=== PATIENT | male | born 1975 | race Caucasian/White ===

== ENCOUNTER 2018-01-11 16:23 | Inpatient (IN) | payer OTHER ==
[~2018-01-11] VITALS: Ht 185.4 cm; Wt 75.0 kg
[2018-01-11 17:21] VITALS: BP 160/100
--- NOTE | 2018-01-11 17:22 | ED GENERAL ADULT ---
See Addendum History of Present Illness General Chief Complaint: Psychiatric Related Complaint Stated Complaint: SIB HIGHWATCH FOR DETOX FROM ALCOHOL Source: patient Exam Limitations: no limitations Vital Signs & Intake/Output Vital Signs & Intake/Output Vital Signs Date Time Temp Pulse Resp B/P B/P Pulse O2 O2 Flow FiO2 Mean Ox Delivery Rate 01/11 2203 98.7 84 16 150/98 98 Room Air 01/11 2202 98.7 84 16 150/98 01/11 1944 99.1 74 18 142/80 98 Room Air 01/11 1816 Room Air 01/11 1739 101 160/100 01/11 1721 160/100 01/11 1641 98.4 101 18 168/117 98 Room Air ED Intake and Output 01/12 0000 01/11 1200 Intake Total 200 Output Total Balance 200 Intake, Oral 200 Patient 170 lb Weight Weight Reported by Patient Measurement Method Allergies Coded Allergies: No Known Allergies (01/11/18) Reconcile Medications Amlodipine (Norvasc) 2.5 MG TABLET 1 TAB PO DAILY HTN (Reported) Atorvastatin Calcium 10 MG TABLET 1 TAB PO DAILY HIGH CHOLESTEROL (Reported) Triage Note: 42 YO MALE TO TRIAGE FOR HIGHWATCH CLEARENCE. 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 ALSO ADMITS TO COCAINE USE 2 NIGHTS AGO (DOESNT USE DAILY). DENIES SEIZURE HX WITH DETOX. Triage Nurses Notes Reviewed? yes Onset: Abrupt Duration: day(s):, constant, continues in ED, getting worse Timing: recent history Injury Environment: home Severity: mild, moderate No Modifying Factors: none HPI: 42-year-old male history of hypertension alcohol dependence, pancreatitis, anxiety presents for evaluation of alcohol withdrawal. Patient reports she has been drinking daily about 15 shots. He reports that he has not been sober in about 7 years. He reports that he drinks throughout the day every few hours including when he wakes up around 6 AM. He reports that he does develop withdrawal symptoms after several hours of not drinking. His last drink was several hours prior to arrival he had 4 nIPs. He denies any history of withdrawal seizures but has never detoxed a really long time. He does report using cocaine intermittently last used several days ago. No suicidal or homicidal ideation. No hallucinations. He does not currently take any medications. He was prescribed Norvasc for his blood pressure but stopped taking it due to insurance problems. No chest pain or shortness of breath. he does currently report high anxiety. (Lonny Pritchett) Past History Travel History Traveled to [place] past 21 day No Medical History Any Pertinent Medical History? 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 No (Lonny Pritchett) Review of Systems Review of Systems Constitutional: Reports: no symptoms. EENTM: Reports: no symptoms. Respiratory: Reports: no symptoms. Cardiovascular: Reports: no symptoms. GI: Reports: no symptoms. Genitourinary: Reports: no symptoms. Musculoskeletal: Reports: no symptoms. Skin: Reports: no symptoms. Neurological/Psychological: Reports: see HPI, anxiety. Hematologic/Endocrine: Reports: no symptoms. Immunologic/Allergic: Reports: no symptoms. All Other Systems: Reviewed and Negative (Lonny Pritchett) Physical Exam Physical Exam General Appearance: well developed/nourished, no apparent distress, alert, awake , anxious, intoxicated Head: atraumatic, normal appearance Eyes: Bilateral: normal appearance, PERRL, EOMI. Ears, Nose, Throat: normal pharynx, normal ENT inspection, hearing grossly normal Neck: normal inspection, supple, full range of motion Respiratory: normal breath sounds, chest non-tender, no respiratory distress, lungs clear Cardiovascular: regular rate/rhythm, normal peripheral pulses Peripheral Pulses: 2+ radial (R), 2+ radial (L) Gastrointestinal: normal bowel sounds, soft, non-tender, no organomegaly Back: normal inspection, normal range of motion, no vertebral tenderness Extremities: normal inspection, normal capillary refill, normal range of motion, no edema Neurologic/Psych: no motor/sensory deficits, awake, alert, oriented x 3 Skin: intact, normal color, warm/dry Core Measures ACS in differential dx? No CVA/TIA Diagnosis: No Sepsis Present: No Sepsis Focused Exam Completed? No (Black PA,Lonny) Progress Differential Diagnoses I considered the following diagnoses in my evaluation of the patient: [Alcohol intoxication, alcohol withdrawal, drug intoxication, drug withdrawal] Plan of Care: Orders Procedure Date/time Status Regular Diet 01/12 B Active CASE MANAGEMENT CONSULT 01/12 0127 Active Add-on Test (ER Only) 01/11 1853 Active EKG 01/11 1853 Active TROPONIN LEVEL 01/11 1810 Complete Add-on Test (ER Only) 01/11 1643 Active CIWA 01/11 1640 Active URINE DRUG SCREEN FOR ER ONLY 01/11 1640 Complete MAGNESIUM 01/11 1640 Complete LIPASE 01/11 1640 Complete ETHANOL 01/11 1640 Complete COMPREHENSIVE METABOLIC PANEL 01/11 1640 Complete CBC WITHOUT DIFFERENTIAL 01/11 1640 Complete Current Medications Sig/W[place] Start time Last Medication Dose Stop Time Status Admin Gabapentin 300 MG Q8 01/11 1719 UNVr 01/11 (Neurontin) 2223 Laboratory Tests 01/11/18 1810: Anion Gap 14, Estimated GFR > 60, BUN/Creatinine Ratio 17.5, Glucose 92, Calcium 9.2, Magnesium 1.5 L, Total Bilirubin 1.3, AST 243 H, ALT 129 H, Alkaline Phosphatase 155 H, Troponin I < 0.01, Total Protein 7.1, Albumin 4.2, Globulin 2.9, Albumin/Globulin Ratio 1.4, Lipase 444 H, CBC w Diff NO MAN DIFF REQ, RBC 3.68 L, MCV 97.6 H, MCH 34.1 H, MCHC 35.0, RDW 15.7 H, MPV 6.9 L, Gran % 57.1, Lymphocytes % 31.7, Monocytes % 10.1 H, Eosinophils % 0.6, Basophils % 0.5, Absolute Granulocytes 2.3, Absolute Lymphocytes 1.3, Absolute Monocytes 0.4 , Absolute Eosinophils 0, Absolute Basophils 0, Serum Alcohol 223.0 01/11/18 180: Urine Opiates Screen < 100, Methadone Screen 92, Barbiturate Screen 66, Ur Phencyclidine Scrn 11.40, Amphetamines Screen 235, U Benzodiazepines Scrn < 85, Urine Cocaine Screen > 1000 H, Urine Cannabis Screen 78.50 H Patient is here for evaluation of alcohol detox. He is a heavy drinker. He reports drinking first thing in the morning. Patient's initial CIWA was 10. His initial alcohol level was 223. Patient may likely require medical admission. He was medicated with gabapentin and clonidine. Labs EKG ordered. We'll monitor additional CIWA scores. Repeat CIWA after gabapentin and clonidine was 4. The pressure has improved heart rate has improved patient is resting comfortably. Labs do show a transaminitis. Magnesium is low oral supplement ordered. labs Otherwise unremarkable. Patient is now CIWA at 15. Ativan ordered he will require admission to the hospital for alcohol detox. Case discussed with case management. pt signed ouit to dr samaniego pending admission/case management. Initial ED EKG: normal sinus rhythm, BORDERLINE LATERAL T WAVES Hand-Off Endorsed To: Dave Samaniego MD Endorsed Time: 2303 Pending: consult (case management ) (Lonny Pritchett) Hand-Off Endorsed Time: 0700 Pending: other (case management) (Dave Samaniego MD) Departure Departure Disposition: STILL A PATIENT Condition: Stable Clinical Impression Primary Impression: Alcohol withdrawal Qualifiers: Complication of substance-induced condition: uncomplicated Qualified Code: F10.230 - Alcohol dependence with withdrawal, uncomplicated Referrals: Patient Has No Primary Care Dr (PCP/Family) Departure Forms: Customer Survey General Discharge Information (Lonny Pritchett) PA/STEAM HAND Co-Sign Statement Statement: ED Attending supervision documentation- x I saw and evaluated the patient. I have also reviewed all the pertinent lab results and diagnostic results. I agree with the findings and the plan of care as documented in the PA's/STEAM HAND's documentation. [] I have reviewed the ED Record and agree with the PA's/STEAM HAND's documentation. [] Additions or exceptions (if any) to the PAs/STEAM HAND's note and plan are summarized below: [] (Dave Samaniego MD) Critical Care Note Critical Care Note Critical Care Time: non-applicable (Lonny Pritchett)
[2018-01-11] MEDS ORDERED: NORVASC2.5 M1 PO (18:34)
[2018-01-11] MEDS ORDERED: ATORVASTATIN CA10 M1 PO (18:35)
[2018-01-11 18:44] LABS: ABSOLUTE BASOPHIL COUNT 0 /CUMM (0.0-0.2); ABSOLUTE EOSINOPHIL COUNT 0 /CUMM (0.0-0.7); ABSOLUTE GRANULOCYTE CT 2.3 /CUMM (1.4-6.5); ABSOLUTE LYMPH COUNT 1.3 /CUMM (1.2-3.4); ABSOLUTE MONOCYTE COUNT 0.4 /CUMM (0.10-0.60); BASOPHIL % 0.5 % (0.0-2.0); EOSINOPHIL % 0.6 % (0-5); GRANULOCYTE % 57.1 % (42.2-75.2); HEMATOCRIT 35.9 % (42-52); MEAN CORPUSCULAR HGB 34.1 PG (27.0-31.0); MEAN CORPUSCULAR VOLUME 97.6 FL (80.0-94.0); MEAN PLATELET VOLUME 6.9 FL (7.4-10.4); PLATELET COUNT 241 /CUMM (130-400); RBC DISTRIBUTION WIDTH 15.7 % (11.5-14.5); RED BLOOD CELL CT 3.68 /CUMM (4.70-6.10)
[2018-01-11 22:02] VITALS: BP 150/98
[2018-01-12] VITALS (12 sets, daily range): BP systolic 140–178; BP diastolic 20–120
--- NOTE | 2018-01-12 03:37 | History & Physical ---
Georgina DUVALL,[facility] 01/12/18 0336: General Information and HPI MD Statement: I have seen and personally examined LAY DOMINGUEZ and documented this H&P. The patient is a 42 year old M who presented with a patient stated chief complaint of [Alcohol Detox]. Source of Information: patient Exam Limitations: no limitations History of Present Illness: Mr. Dominguez is a 42 y/o gentleman with past medical history is significant for alcohol abuse, hypertension, hyperlipidemia, pancreatitis, anxiety, depression and ADHD presents for alcohol detox. Patient was sent in by [employer] for Detox. He has been drinking since the age of 14-15 yrs and drinks approximately 15 shots of Vodka daily. He has never been sobre since he started drinking except when he [facility] the [facility] days and has never been in a detox program in the past. His last drink was several hours prior to arrival to ED. Denies any history of withdrawal seizures or intubation in the past. He did not have any withdrawl symptom when on presentation but last night started feeling anxious, shaky, weak, had hot flashes and felt had bugs crawling all over his body. Denies any nausea, vomiting, headaches, visual or auditory hallucinations, or suicidal/homicidal ideations. Reports 2 episodes of green colored loose stools last night. Deneis any fever/chills, chest pain, palpitations, cough or SOB. Also reports Marijuana use, last time used was for couple of days ago. He does not take any medications on a regular basis, he was prescribed Norvasc in the past but stopped taking it because of insurance issues. Allergies/Medications Allergies: Coded Allergies: No Known Allergies (01/11/18) Home Med list Amlodipine (Norvasc) 2.5 MG TABLET 2 TAB PO DAILY HTN Atorvastatin Calcium 10 MG TABLET 1 TAB PO DAILY HIGH CHOLESTEROL (Reported) Gabapentin 300 MG CAPSULE 300 MG PO Q8 anxiety Losartan Potassium 25 MG TABLET 25 MG PO DAILY htn Past History Travel History Traveled to [place] past 21 day No Medical History Neurological: NONE EENT: NONE Cardiovascular: hypertension, hyperlipidemia Respiratory: NONE Gastrointestinal: pancreatitis Hepatic: NONE Renal: NONE Musculoskeletal: NONE Psychiatric: anxiety, depression, ADHD, Panic Attacks Endocrine: NONE Blood Disorders: NONE Cancer(s): NONE 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 Ambulation: independent IADLs Independent: shopping, housework, finances, food prep, telephone, transportation , medication admin. Employment History Employment Unemployed Review of Systems Review of Systems Constitutional: Reports: no symptoms. EENTM: Reports: no symptoms. Cardiovascular: Reports: no symptoms. Respiratory: Reports: no symptoms. GI: Reports: no symptoms. Genitourinary: Reports: no symptoms. Musculoskeletal: Reports: no symptoms. Skin: Reports: no symptoms. Neurological/Psychological: Reports: anxiety, tremors. Hematologic/Endocrine: Reports: no symptoms. Immunologic/Allergic: Reports: no symptoms. All Other Systems: Reviewed and Negative Exam & Diagnostic Data Last 24 Hrs of Vital Signs/I&O Vital Signs Date Time Temp Pulse Resp B/P B/P Pulse O2 O2 Flow FiO2 Mean Ox Delivery Rate 01/11 2203 98.7 84 16 150/98 98 Room Air 01/11 2202 98.7 84 16 150/98 01/11 1944 99.1 74 18 142/80 98 Room Air 01/11 1816 Room Air 01/11 1739 101 160/100 01/11 1721 160/100 01/11 1641 98.4 101 18 168/117 98 Room Air Intake & Output 01/12 0800 01/12 0000 01/11 1600 Intake Total 200 Output Total Balance 200 Intake, Oral 200 Patient 170 lb Weight Weight Reported by Patient Measurement Method Physical Exam General Appearance Alert, Oriented X3, Cooperative, No Acute Distress Skin No Rashes, No Breakdown HEENT Atraumatic, PERRLA, EOMI Neck Supple, No JVD Cardiovascular Regular Rate, Normal S1, Normal S2, No Murmurs Lungs Clear to Auscultation, Normal Air Movement Abdomen Normal Bowel Sounds, Soft, No Tenderness Neurological Normal Speech, Strength at 5/5 X4 Ext, Normal Tone, Sensation Intact, Cranial Nerves 3-12 NL, Tremors BUE Extremities No Clubbing, No Cyanosis, No Edema, Normal Pulses Last 24 Hrs of Labs/Jaspreet: Laboratory Tests 01/11/18 1810: Anion Gap 14, Estimated GFR > 60, BUN/Creatinine Ratio 17.5, Glucose 92, Calcium 9.2, Magnesium 1.5 L, Total Bilirubin 1.3, AST 243 H, ALT 129 H, Alkaline Phosphatase 155 H, Troponin I < 0.01, Total Protein 7.1, Albumin 4.2, Globulin 2.9, Albumin/Globulin Ratio 1.4, Lipase 444 H, CBC w Diff NO MAN DIFF REQ, RBC 3.68 L, MCV 97.6 H, MCH 34.1 H, MCHC 35.0, RDW 15.7 H, MPV 6.9 L, Gran % 57.1, Lymphocytes % 31.7, Monocytes % 10.1 H, Eosinophils % 0.6, Basophils % 0.5, Absolute Granulocytes 2.3, Absolute Lymphocytes 1.3, Absolute Monocytes 0.4 , Absolute Eosinophils 0, Absolute Basophils 0, Serum Alcohol 223.0 01/11/18 1809: Urine Opiates Screen < 100, Methadone Screen 92, Barbiturate Screen 66, Ur Phencyclidine Scrn 11.40, Amphetamines Screen 235, U Benzodiazepines Scrn < 85, Urine Cocaine Screen > 1000 H, Urine Cannabis Screen 78.50 H Diagnostic Data EKG Results NSR HR 79, QTc 450 Assessment/Plan Assessment: Mr. Dominguez is a 42 y/o gentleman with past medical history is significant for alcohol abuse, hypertension, hyperlipidemia, pancreatitis, anxiety, depression and ADHD presents for alcohol detox. Vitals on admission were Temp 98.4, HR 101, RR 18, BP 168/117 and O2 Sats 98 % on Room Air AST 243 H, ALT 129 H, Alkaline Phosphatase 155 H, Troponin I < 0.01, Magnesium 1.5. utoxpositive for Cannabis and Cocaine Problem List; #. ALcohol Detox #. Transaminitis 2/2 to alcohol abuse #. Hypomagnesemia 2/2 to alcohol abuse # Cannabis and Cocaine abuse; Patient admits to using Marijuana only but Utox positive for cocaine and Cannabis #. Hx of HTN, Anxiety and Depression - Admit the patient to general medicine floor - Start the patient on by mouth Ativan 2 mg every 6, taper per CIWA protocol. Current Highest CIWA 17. - IV Ativan per CIWA protocol - Multivitamin, Folate and Thiamine - Zofran as needed for nausea - Recieved Gabapentin 300mg x 1 in ER. - Psych Consult - Clonidine x 1 given in the ER for tachycardia and HTN likely 2/2 to alcohol withdrawl, can repeat as needed. - Start on slow-mag 400mg BID - Continue amlodipine for HTN. - Continue Simvastatin. DVT Prophylaxis; ALPS and S/C Lovenox Patient is Full Code As Ranked By This Provider Problem List: 1. Alcohol withdrawal Qualifiers Complication of substance-induced condition: uncomplicated Qualified Code: F10.230 - Alcohol dependence with withdrawal, uncomplicated Core Measures/Misc (03/19) Acute Coronary Syndrome ACS Diagnosis: No Congestive Heart Failure Congestive Heart Failure Diagnosis No Cerebrovascular Accident CVA/TIA Diagnosis: No VTE (View Protocol) VTE Risk Factors Age>40 No Mechanical VTE Prophylaxis d/t N/A MechProphylax Ordered No VTE Pharm Prophylaxis d/t NA PharmProphylax ordered Sepsis (View protocol) Sepsis Present: No If YES complete Sepsis Event Note If YES complete Sepsis Event Note Meir Dunbar MD 01/12/18 0344: Core Measures/Misc (03/19) Sepsis (View protocol) If YES complete Sepsis Event Note If YES complete Sepsis Event Note Attending MD Review Statement Attending Statement Attending MD Statement: examined this patient, discuss w/resident/PA/DIRECTOR AUDIENCE MARKETING, agreed w/resident/PA/DIRECTOR AUDIENCE MARKETING, reviewed EMR data (avail) Attending Assessment/Plan: 42M PMH HTN, HLD, EtOH abuse, never withdrew before, drinks basically all day from waking up until going to bed, went to [facility] for detox, sent to ER for intoxication, as EtOH level dropped became more agitated, tachycardic, and tremulous. Received Gabapentin 300mg, Clonidine 0.1mg, and Ativan 1mg x3 in ER with rising CIWA, now 17. Will admit to medicine, Ativan 2mg q6h PO, PRN Ativan , continue home medications.
[2018-01-12 06:13] LABS: ABSOLUTE BASOPHIL COUNT 0 /CUMM (0.0-0.2); ABSOLUTE EOSINOPHIL COUNT 0.1 /CUMM (0.0-0.7); ABSOLUTE LYMPH COUNT 1.6 /CUMM (1.2-3.4); ABSOLUTE MONOCYTE COUNT 0.3 /CUMM (0.10-0.60); BASOPHIL % 0.4 % (0.0-2.0); EOSINOPHIL % 2.1 % (0-5); GRANULOCYTE % 50.7 % (42.2-75.2); HEMATOCRIT 36.9 % (42-52); MEAN CORPUSCULAR HGB 34.1 PG (27.0-31.0); MEAN CORPUSCULAR HGB CONC 34.4 G/DL (33.0-37.0); MEAN CORPUSCULAR VOLUME 98.9 FL (80.0-94.0); MEAN PLATELET VOLUME 6.8 FL (7.4-10.4); PLATELET COUNT 236 /CUMM (130-400); RBC DISTRIBUTION WIDTH 15.6 % (11.5-14.5); RED BLOOD CELL CT 3.73 /CUMM (4.70-6.10)
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
--- NOTE | 2018-01-12 09:39 | PN- Att Addend ---
Attending Addendum Attending Brief Note 42-year-old male past medical history of significant alcohol abuse, hypertension and hyperlipidemia not taking his medications was here with acute hyperactive alcohol withdrawal. Patient lives with his parents and was scheduled [facility] be [facility] but was found to be intoxicated and sent for detox with the plan to the admitted to [facility] after that. He was in significant alcohol withdrawal with high CIWA scores and has been started on Ativan 2 mg every 6 [id number] with IV Ativan per CIWA. His pressure is also high and he is on Norvasc 5 mg a day . He has alcoholic transaminitis which we'll trend closely and check coags in a.m. We did confirm that he is also using intranasal cocaine, no IV drug use, so no beta blockers and watch closely. Have social work see him. And patient is also requesting a psych eval for significant anxiety.
--- NOTE | 2018-01-12 17:25 | RADIOLOGY REPORT ---
EXAMINATION: XR CHEST CLINICAL INFORMATION: Fever. COMPARISON: None TECHNIQUE: 2 views of the chest were obtained. FINDINGS: The lungs are well-inflated and clear. Trachea is midline in position. No interstitial disease, focal consolidation, mass, pneumothorax or pleural effusion. The cardiomediastinal silhouette is normal in size. The mediastinal, hilar and diaphragmatic contours are normal. Bones are normal. The examined upper abdomen is unremarkable. IMPRESSION: Normal chest. No evidence of pneumonia.
[2018-01-13 06:20] VITALS: BP 140/84
[2018-01-13 09:08] LABS: PT 11.2 SEC (9.4-12.5); PTT 28 SEC (25-37)
[2018-01-13 09:13] LABS: ABSOLUTE BASOPHIL COUNT 0 /CUMM (0.0-0.2); ABSOLUTE EOSINOPHIL COUNT 0.1 /CUMM (0.0-0.7); ABSOLUTE GRANULOCYTE CT 3.6 /CUMM (1.4-6.5); ABSOLUTE LYMPH COUNT 1.5 /CUMM (1.2-3.4); ABSOLUTE MONOCYTE COUNT 0.3 /CUMM (0.10-0.60); BASOPHIL % 0.6 % (0.0-2.0); EOSINOPHIL % 1.8 % (0-5); GRANULOCYTE % 64.8 % (42.2-75.2); HEMATOCRIT 39.7 % (42-52); MEAN CORPUSCULAR HGB 34.3 PG (27.0-31.0); MEAN CORPUSCULAR HGB CONC 34.4 G/DL (33.0-37.0); MEAN CORPUSCULAR VOLUME 99.9 FL (80.0-94.0); MEAN PLATELET VOLUME 7.7 FL (7.4-10.4); PLATELET COUNT 244 /CUMM (130-400); RBC DISTRIBUTION WIDTH 15.2 % (11.5-14.5); RED BLOOD CELL CT 3.97 /CUMM (4.70-6.10); WHITE BLOOD CELL COUNT 5.5 /CUMM (4.8-10.8)
--- NOTE | 2018-01-13 10:20 | PN- Housestaff ---
See Addendum Subjective Follow-up For: alcohol detox elevated temperature Subjective: Patient seen and examined. Overnight his CIWA scores are 0. Patient had elevated temperature yesterday and 101.7. This morning his temperatures are 98.4. Patient states that he is feeling okay. He has no tremors, no headache, no nausea or vomiting, notes a very low level of anxiety. Otherwise no complaints. Review of Systems Constitutional: Reports: no symptoms. Cardiovascular: Reports: no symptoms. Respiratory: Reports: no symptoms. Gastrointestinal: Reports: no symptoms. Neurological/Psychological: Reports: anxiety. Objective Last 24 Hrs of Vital Signs/I&O Vital Signs Date Time Temp Pulse Resp B/P B/P Pulse O2 O2 Flow FiO2 Mean Ox Delivery Rate 01/13 0925 63 140/84 01/13 0925 63 140/84 01/13 0620 98.4 63 20 140/84 96 Room Air 01/12 2200 98.9 59 20 144/86 98 Room Air 01/12 1800 99.1 80 20 162/101 01/12 1756 99.1 80 20 162/101 100 Room Air 01/12 1600 99.1 80 20 162/101 01/12 1500 101.7 69 20 150/95 01/12 1450 101.7 01/12 1435 101.7 69 20 150/95 98 Room Air 01/12 1357 67 150/100 01/12 1300 99.5 67 20 150/100 Intake & Output 01/13 1600 01/13 0800 01/13 0000 Intake Total 200 300 Output Total 800 Balance 200 -500 Intake, Oral 200 300 Output, Urine 800 Physical Exam General Appearance: Alert, Oriented X3, Cooperative, No Acute Distress Skin: No Rashes Skin Temp/Moisture Exam: Warm/Dry Sepsis Skin Exam (color): Normal for Ethnicity Cardiovascular: Regular Rate, Normal S1, Normal S2, No Murmurs Lungs: Clear to Auscultation, Normal Air Movement Abdomen: Normal Bowel Sounds, Soft, No Tenderness, No Hepatospenomegaly, No Masses Neurological: Normal Speech Extremities: No Cyanosis, No Edema, Normal Pulses Vascular: Normal Pulses, Pulses Symmetrical Current Medications: Current Medications Sig/Wilton Start time Last Medication Dose Route Stop Time Status Admin Acetaminophen 650 MG Q6P PRN 01/12 0400 AC 01/12 PO 1450 Amlodipine Besylate 5 MG DAILY 01/12 0900 AC 01/13 PO 0925 Atorvastatin Calcium 10 MG DAILY 01/12 09 AC 01/13 PO 0924 Enoxaparin Sodium 40 MG DAILY 01/12 09 AC 01/13 SC 0924 Folic Acid 1 MG DAILY 01/12 0900 AC 01/13 PO 0925 Gabapentin 300 MG Q8 01/11 1719 AC 01/13 PO 0518 Lorazepam 1.5 MG Q6 01/13 1200 AC PO Lorazepam 2 MG Q6 01/12 0600 DC 01/13 PO 0518 Lorazepam 0 Q1P PRN 01/12 0415 AC 01/12 IV 0639 Losartan Potassium 25 MG DAILY 01/12 1220 AC 01/13 PO 0925 Magnesium Oxide 400 MG BID 01/12 09 AC 01/13 PO 0924 Multivitamins 1 TAB DAILY 01/12 900 AC 01/13 PO 0925 Patient Medication 1 ED ONE ONE 01/12 1330 DC Teaching ED 01/12 1331 Thiamine HCl 100 MG DAILY 01/12 09 AC 01/13 PO 0924 Last 24 Hrs of Lab/Jaspreet Results Last 24 Hrs of Labs/Mics: Laboratory Tests 01/13/18 0800: RPR Titer/FTA Pending 01/13/18 0800: Anion Gap 13, Estimated GFR > 60, BUN/Creatinine Ratio 14.3, Magnesium 1.8, Total Bilirubin 2.1 H, Direct Bilirubin 0.5 H, AST 171 H, ALT 120 H, Alkaline Phosphatase 97, Total Protein 7.7, Albumin 4.6, TSH &T3 &Free T4 Intrp 3.160, CBC w Diff NO MAN DIFF REQ, RBC 3.97 L, MCV 99.9 H, MCH 34.3 H, MCHC 34.4, RDW 15.2 H, MPV 7.7, Gran % 64.8, Lymphocytes % 26.8, Monocytes % 6.0, Eosinophils % 1.8, Basophils % 0.6, Absolute Granulocytes 3.6, Absolute Lymphocytes 1.5, Absolute Monocytes 0.3, Absolute Eosinophils 0.1, Absolute Basophils 0, Hepatitis A IgM Ab NONREACTIVE, Hep Bs Antigen NONREACTIVE, Hep B Core IgM Ab Conf NONREACTIVE, Hepatitis C Antibody NONREACTIVE, HIV 1&2 Ab Western Blot NONREACTIVE 01/13/18 0720: PT 11.2, INR 1.03, APTT 28 Microbiology 01/12 2205 BLOOD: Blood Culture - RECD 01/12 1800 BLOOD: Blood Culture - RECD 01/12 1639 URINE ROUT: Urine Culture - COLB Orders CIWA Score (last 24 hrs): 0 Assessment/Plan Assessment: Mr. Dominguez is a 42 y/o gentleman with past medical history is significant for alcohol abuse, hypertension, hyperlipidemia, pancreatitis, anxiety, depression and ADHD presents for alcohol detox. Vitals on admission were Temp 98.4, HR 101, RR 18, BP 168/117 and O2 Sats 98 % on Room Air AST 243 H, ALT 129 H, Alkaline Phosphatase 155 H, total bilirubin 2.1 and direct bilirubin 0.4, Troponin I < 0.01, Magnesium 1.5. utoxpositive for Cannabis and Cocaine Problem List; #. ALcohol Detox #. Transaminitis 2/2 to alcohol abuse #. Hypomagnesemia 2/2 to alcohol abuse #. Cannabis and cocaine abuse; #. Hx of HTN, Anxiety and Depression Plan -Patient is admitted to Gen. medical floors for evaluation and treatment -CIWA scoring with when necessary Ativan and any dose of Ativan 2 mg every 6 was added yesterday. Today patient is scoring CIWA of 0 so we will decrease his Ativan to 1.5 mg every 6. - Multivitamin, Folate and Thiamine - Zofran as needed for nausea - Recieved Gabapentin 300mg x 1 in ER and as per psych, who he saw for expressed depression and anxiety, we will continue the gabapentin 300 mg 3 times a day. Psychiatry is also suggesting naltrexone on discharge. Psychiatry also requested thyroid tests which were normal as well as hepatitis panel and HIV which were both negative. We will follow-up on RPR. - Clonidine x 1 given in the ER for tachycardia and HTN likely 2/2 to alcohol withdrawl, can repeat as needed but we have increased his amlodipine 2.5 mg to 5 mg and added losartan 25 mg. -Continue on slow-mag 400mg BID, days magnesium level is within normal limits - Continue Simvastatin. -A she was found to have elevated temperature yesterday to 101.7. Chest x-ray was done which was normal, vitals at the time were normal. A urinalysis was also ordered but was not received. Urine cultures and blood cultures were taken , we will follow. Today patient is afebrile. WBC count yesterday was 5.5 and today is 4.0. -Patient had elevated LFTs on admission that increased the following day. Today , his total bilirubin is unchanged from yesterday at 2.1. His direct bilirubin increased from 0.4-0.5. His AST has decreased from 243-171. His ALT has decreased from 129-120. His alkaline phosphatase is decreased from 155-97. Total protein and albumin levels are normal. We will follow-up tomorrow with another set of liver function tests specially as patient's total bilirubin remains elevated at 2.1. The patient is having no abdominal pain on palpation as per exam, has no icterus or jaundice. DVT Prophylaxis; ALPS and S/C Lovenox Patient is Full Code Problem List: 1. Alcohol withdrawal Pain Ratin Pain Location: na Pain Goal: Remain pain free Pain Plan: na Tomorrow's Labs & Rationales: na
--- NOTE | 2018-01-13 10:36 | Patient Discharge Instructions ---
Discharge Instructions General Discharge Information You were seen/treated for: alcohol withdrawal Special Instructions: 1. follow up with pcp in one week 2. follow up with psychiatry in one week For outpatient/IOP referral, pt may contact: [facility]PS [facility] [address], [place] [id number] Day porgram - 9a-1p or 9a-2p Evening Program -- 5:30-8:30p Diet Continue normal diet: Yes Activity Full Activity/No Limits: Yes Acute Coronary Syndrome Inclusion Criteria At DC or during hospital stay patient has or had the following: ACS DIAGNOSIS No Discharge Core Measures Meds if any: Prescribed or Continued at Discharge Meds if any: NOT Prescribed or Continued at Discharge Congestive Heart Failure Inclusion Criteria At DC or during hospital stay patient has or had the following: CHF DIAGNOSIS No Discharge Core Measures Meds if any: Prescribed or Continued at Discharge Meds if any: NOT Prescribed or Continued at Discharge Cerebrovascular accident Inclusion Criteria At DC or during hospital stay patient has or had the following: CVA/TIA Diagnosis No Discharge Core Measures Meds if any: Prescribed or Continued at Discharge Meds if any: NOT Prescribed or Continued at Discharge Venous thromboembolism Inclusion Criteria VTE Diagnosis No VTE Type NONE VTE Confirmed by (Test) NONE Discharge Core Measures - Per Current guidelines, there needs to be overlap - treatment for the first 5 days of Warfarin therapy. - If discharged on Warfarin prior to 5 days of - overlap therapy, the patient will need to be - assessed for post discharge needs including - *Post discharge parental anticoagulation - *Warfarin and/or parental anticoagulation education - *Follow up date to check INR post discharge At least 5 days overlap therapy as Inpatient No Meds if any: Prescribed or Continued at Discharge Note: Overlap Therapy is Warfarin and Anticoagulant Meds if any: NOT Prescribed or Continued at Discharge
[2018-01-13] MEDS ORDERED: LOSARTAN POTASS25 M1 PO (10:46)
[2018-01-13] MEDS ORDERED: NORVASC2.5 M1 PO (10:46)
[2018-01-13] MEDS ORDERED: GABAPENTIN300 M2 PO (10:46)
[2018-01-13 15:35] VITALS: BP 142/86
[2018-01-13 15:53] VITALS: BP 160/70
[2018-01-13 15:58] VITALS: BP 160/70
[2018-01-13 21:36] VITALS: BP 150/90
[2018-01-14 02:02] VITALS: BP 120/90
[2018-01-14 06:00] VITALS: BP 130/90
--- NOTE | 2018-01-14 10:21 | PN- Housestaff ---
Chandler Abraham 01/14/18 1014: Subjective Follow-up For: alcohol detox Subjective: Pt. was seen and examined at bedside, no acute events overnight, aferible. patient states he is having cravings, irritability, agitation, tremors, and chills which start towards the end of 6 hours. Review of Systems Constitutional: Denies: chills, diaphoresis, fever. Cardiovascular: Denies: edema, palpitations. Respiratory: Denies: cough, orthopnea. Gastrointestinal: Denies: abdominal pain, constipation, diarrhea, changes in stool. Neurological/Psychological: Reports: anxiety, emotional problems, tremors. Objective Last 24 Hrs of Vital Signs/I&O Vital Signs Date Time Temp Pulse Resp B/P B/P Pulse O2 O2 Flow FiO2 Mean Ox Delivery Rate 01/14 0600 98.4 64 18 130/90 01/14 0202 98.4 76 16 120/90 96 Room Air 01/13 2136 99.4 62 18 150/90 97 01/13 1558 98.1 66 20 160/70 01/13 1553 98.1 66 20 160/70 97 Room Air 01/13 1535 98.8 74 20 142/86 97 Intake & Output 01/14 1600 01/14 0800 01/14 0000 Intake Total 300 300 Output Total Balance 300 300 Intake, Oral 300 300 Patient 165 lb Weight Weight Bed scale Measurement Method Physical Exam General Appearance: Alert, Oriented X3, Cooperative Skin: No Rashes HEENT: Atraumatic, EOMI Cardiovascular: Regular Rate, Normal S1, Normal S2 Lungs: Clear to Auscultation, Normal Air Movement Abdomen: Normal Bowel Sounds, Soft, No Tenderness Neurological: tremors in bilat. outstreched hands Assessment/Plan Assessment: Mr. Dominguez is a 42 y/o gentleman with past medical history is significant for alcohol abuse, hypertension, hyperlipidemia, pancreatitis, anxiety, depression and ADHD presents for alcohol detox. Vitals on admission were Temp 98.4, HR 101, RR 18, BP 168/117 and O2 Sats 98 % on Room Air AST 243 H, ALT 129 H, Alkaline Phosphatase 155 H, total bilirubin 2.1 and direct bilirubin 0.4, Troponin I < 0.01, Magnesium 1.5. utoxpositive for Cannabis and Cocaine Problem List; #. ALcohol Detox #. Transaminitis 2/2 to alcohol abuse #. Hypomagnesemia 2/2 to alcohol abuse #. Cannabis and cocaine abuse; #. Hx of HTN, Anxiety and Depression Plan -Patient is admitted to [facility] floors for evaluation and treatment -CIWA scoring with when necessary Ativan and any dose of Ativan 2 mg every 6 was added yesterday. Today patient is scoring CIWA of 0 so we will decrease his Ativan to 1.5 mg every 6. - Multivitamin, Folate and Thiamine - Zofran as needed for nausea - Recieved Gabapentin 300mg x 1 in ER and as per psych, who he saw for expressed depression and anxiety, we will continue the gabapentin 300 mg 3 times a day. Psychiatry is also suggesting naltrexone on discharge. Psychiatry also requested thyroid tests which were normal as well as hepatitis panel and HIV which were both negative. We will follow-up on RPR. - Clonidine x 1 given in the ER for tachycardia and HTN likely 2/2 to alcohol withdrawl, can repeat as needed but we have increased his amlodipine 2.5 mg to 5 mg and added losartan 25 mg. -Continue on slow-mag 400mg BID, days magnesium level is within normal limits - Continue Simvastatin. -A she was found to have elevated temperature yesterday to 101.7. Chest x-ray was done which was normal, vitals at the time were normal. A urinalysis was also ordered but was not received. Urine cultures and blood cultures were taken , we will follow. Today patient is afebrile. WBC count yesterday was 5.5 and today is 4.0. -Patient had elevated LFTs on admission that increased the following day. Today , his total bilirubin is unchanged from yesterday at 2.1. His direct bilirubin increased from 0.4-0.5. His AST has decreased from 243-171. His ALT has decreased from 129-120. His alkaline phosphatase is decreased from 155-97. Total protein and albumin levels are normal. We will follow-up tomorrow with another set of liver function tests specially as patient's total bilirubin remains elevated at 2.1. The patient is having no abdominal pain on palpation as per exam, has no icterus or jaundice. CIWA SCORE 0-3, LFTs improving, begin discharge planning DVT Prophylaxis; ALPS and S/C Lovenox Patient is Full Code Problem List: 1. Alcohol withdrawal Pain Ratin Pain Location: n/a Pain Goal: Remain pain free Pain Plan: n/a Tomorrow's Labs & Rationales: none Tello Woo MD 01/14/181958: Attending MD Review Statement Attending Statement Attending MD Statement: examined this patient, discuss w/resident/PA/UTILIZATION ENGINEER, agreed w/resident/PA/UTILIZATION ENGINEER, reviewed EMR data (avail), amended to note Attending Assessment/Plan: The patient was seen and discussed with house staff. CIWA continues to be 0 and agree with Ativan taper further today. The patient expressed concern regarding his anxiety/depression and felt that this may not be addressed at [facility]. Will re-address with renal social worker/case management tomorrow (may need psych input). Continue gabapentin.
[2018-01-14 15:09] VITALS: BP 146/92
[2018-01-14 21:58] VITALS: BP 140/90
[2018-01-15] VITALS (7 sets, daily range): BP systolic 128–158; BP diastolic 82–102
--- NOTE | 2018-01-15 08:00 | PN- Housestaff ---
Subjective Follow-up For: Alcohol detox Subjective: Patient seen and examined. He states that he feels "pretty good" but is anxious. He has a very minor tremor, denies any nausea or vomiting or headache. His vital signs are stable. Review of Systems Constitutional: Reports: no symptoms. EENTM: Reports: no symptoms. Cardiovascular: Reports: no symptoms. Respiratory: Reports: no symptoms. Gastrointestinal: Reports: no symptoms. Genitourinary: Reports: no symptoms. Neurological/Psychological: Reports: anxiety, tremors. Objective Last 24 Hrs of Vital Signs/I&O Vital Signs Date Time Temp Pulse Resp B/P B/P Pulse O2 O2 Flow FiO2 Mean Ox Delivery Rate 01/15 1443 98.8 71 20 128/82 98 Room Air 01/15 1400 98.8 71 20 128/82 01/15 1000 73 18 142/98 01/15 0929 73 142/98 01/15 0928 73 142/98 01/15 0600 98.1 60 18 148/86 98 Room Air 01/15 0218 98.1 61 18 142/88 98 Room Air 01/14 2158 98.3 71 20 140/90 98 Room Air Intake & Output 01/15 1600 01/15 0800 01/15 0000 Intake Total 960 300 300 Output Total Balance 960 300 300 Intake, Oral 960 300 300 Number 1 Bowel Movements Physical Exam General Appearance: Alert, Oriented X3, Cooperative, No Acute Distress Skin: No Rashes, No Breakdown, No Significant Lesion Skin Temp/Moisture Exam: Warm/Dry HEENT: Atraumatic, PERRLA, EOMI, Mucous Membr. moist/pink Cardiovascular: Regular Rate, Normal S1, Normal S2, No Murmurs Abdomen: Normal Bowel Sounds, Soft, No Tenderness Neurological: Normal Speech Extremities: No Clubbing, No Cyanosis, No Edema, Normal Pulses, No Tenderness/ Swelling Current Medications: Current Medications Sig/Wilton Start time Last Medication Dose Route Stop Time Status Admin Acetaminophen 650 MG .STK-MED ONE 01/14 2031 DC PO 01/15 2032 Acetaminophen 650 MG Q6P PRN 01/120 AC 01/14 PO 2031 Amlodipine Besylate 5 MG DAILY 01/12 900 AC 01/15 PO 09 Atorvastatin Calcium 10 MG DAILY 01/12 900 AC 01/15 PO 09 Enoxaparin Sodium 40 MG DAILY 01/12 900 AC 01/15 SC 0924 Folic Acid 1 MG DAILY 01/12 0900 AC 01/15 PO 0924 Gabapentin 300 MG Q8 01/11 1719 AC 01/15 PO 1331 Lorazepam 0.5 MG Q6 01/15 1800 AC PO 01/21 1159 Lorazepam 1 MG Q6 01/14 1200 DC 01/15 PO 1142 Lorazepam 0 Q1P PRN 01/12 0415 AC 01/12 IV 0639 Losartan Potassium 25 MG DAILY 01/12 1220 AC 01/15 PO 0929 Magnesium Oxide 400 MG BID 01/12 09 AC 01/15 PO 0924 Multivitamins 1 TAB DAILY 01/12 09 AC 01/15 PO 0924 Thiamine HCl 100 MG DAILY 01/12 900 AC 01/15 PO 0924 Orders CIWA Score (last 24 hrs): 0 Assessment/Plan Assessment: Mr. Dominguez is a 42 y/o gentleman with past medical history is significant for alcohol abuse, hypertension, hyperlipidemia, pancreatitis, anxiety, depression and ADHD presents for alcohol detox. Vitals on admission were Temp 98.4, HR 101, RR 18, BP 168/117 and O2 Sats 98 % on Room Air AST 243 H, ALT 129 H, Alkaline Phosphatase 155 H, total bilirubin 2.1 and direct bilirubin 0.4, Troponin I < 0.01, Magnesium 1.5. utoxpositive for Cannabis and Cocaine Problem List; #. ALcohol Detox #. Transaminitis 2/2 to alcohol abuse #. Hypomagnesemia 2/2 to alcohol abuse #. Cannabis and cocaine abuse; #. Hx of HTN, Anxiety and Depression Plan -Patient is admitted to [facility] floors for evaluation and treatment -CIWA scoring with when necessary Ativan with standing dose of Ativan 1 every 6 that will be tapered today to 25 mg every 6. Today patient is scoring CIWA of 0. - Multivitamin, Folate and Thiamine - Zofran as needed for nausea - Recieved Gabapentin 300mg x 1 in ER and as per psych, who he saw for expressed depression and anxiety, we will continue the gabapentin 300 mg 3 times a day. Psychiatry also requested thyroid tests which were normal as well as hepatitis panel and HIV which were both negative. RPR/VDRL is also negative. -Patient is requesting to speak with psychiatry again just for optimal anxiety control prior to being discharged to [facility]. Of note they do have their own psychiatrist there so he will be able to have his anxiety and depression managed there. The patient has been on SSRIs before, namely Lexapro. He is amenable to starting another one as he stated that Lexapro did not help him very much. - Clonidine x 1 given in the ER for tachycardia and HTN likely 2/2 to alcohol withdrawl, can repeat as needed but we have increased his amlodipine 2.5 mg to 5 mg and added losartan 25 mg. -Continue on slow-mag 400mg BID, last magnesium level was within normal limits -Continue Simvastatin. -Patient was found to have elevated temperature last week to 101.7. Chest x-ray was done which was normal, vitals at the time were normal. Urine and blood cultures were normal. Today patient is afebrile. WBC is normal on his last draw. -Patient had elevated LFTs on admission that increased the following day. Yesterday his LFTs were all decreasing the repeat lab work was not done for today. Total protein and albumin levels are normal. The patient has had no right upper quadrant pain on palpation as per exam, has no icterus or jaundice. DVT Prophylaxis; ALPS and S/C Lovenox Patient is Full Code Problem List: 1. Alcohol withdrawal Pain Ratin Pain Location: na Pain Goal: Remain pain free Pain Plan: na Tomorrow's Labs & Rationales: na
--- NOTE | 2018-01-15 10:54 | PN- Att Addend ---
Attending Addendum Attending Brief Note Patient seen and examined, overall feeling much better. CIWA scores are running low. Patient on scheduled Ativan. He still feels anxious at times. Requesting to go outside to get some fresh air. Vital Signs Date Time Temp Pulse Resp B/P B/P Pulse O2 O2 Flow FiO2 Mean Ox Delivery Rate 01/15 0929 73 142/98 01/15 0928 73 142/98 01/15 0600 98.1 60 18 148/86 98 Room Air 01/15 0218 98.1 61 18 142/88 98 Room Air 01/14 2158 98.3 71 20 140/90 98 Room Air 01/14 1509 98.7 68 20 146/92 99 on exam; aox3, nad. cv; s1, s2, rrr resp; clear abd; soft, nt, bs+ ext; no edema No labs. A/P: 42-year-old male with past medical history significant for hypertension, hyperlipidemia, noncompliance of medications, alcohol use who is admitted with acute alcohol intoxication currently on scheduled and as needed Ativan. Patient overall improving with similar scores are running low. We will continue to taper his Ativan. Will taper down to 0.5 mg every 6 today scheduled and continue the as needed dosing. Blood pressure much better on calcium channel christian as well as losartan. Please call psychiatry again for patient's continued complaints of anxiety. Patient was encouraged to ambulate. Continue the rest of the management and patient on Lovenox for DVT prophylaxis.
[2018-01-16] VITALS (13 sets, daily range): BP systolic 116–158; BP diastolic 72–102
--- NOTE | 2018-01-16 07:31 | PN- Housestaff ---
Subjective Follow-up For: ALCOHOL DETOX Subjective: Patient seen and examined. He states that he had a panic episode yesterday with a headache on his side and back of his head, increased blood pressure to 158, temperature 99.5, diaphoresis. It lasted for about 1.5 hours and his CIWA at the time was 2. This morning on interview, he is calm with no complaints. CIWA is 0 and vitals are stable. Review of Systems Constitutional: Reports: no symptoms. Cardiovascular: Reports: no symptoms. Respiratory: Reports: no symptoms. Gastrointestinal: Reports: no symptoms. Musculoskeletal: Reports: no symptoms. Skin: Reports: no symptoms. Neurological/Psychological: Reports: anxiety. Objective Last 24 Hrs of Vital Signs/I&O Vital Signs Date Time Temp Pulse Resp B/P B/P Pulse O2 O2 Flow FiO2 Mean Ox Delivery Rate 01/16 0946 61 154/100 01/16 0946 61 154/100 01/16 0702 97.7 56 18 116/72 99 Room Air 01/16 0400 98.3 51 18 126/80 01/16 0202 98.3 51 18 126/80 98 Room Air 01/16 0200 98.3 51 18 126/80 01/16 0000 99.5 62 22 158/102 01/15 2204 99.5 62 22 158/102 98 Room Air 01/15 1443 98.8 71 20 128/82 98 Room Air 01/15 1400 98.8 71 20 128/82 Intake & Output 01/16 1600 01/16 0800 01/16 0000 Intake Total 360 2000 Output Total Balance 360 2000 Intake, Oral 360 2000 Physical Exam General Appearance: Alert, Oriented X3, Cooperative, No Acute Distress Skin: No Rashes, No Breakdown, No Significant Lesion Sepsis Skin Exam (color): Normal for Ethnicity Cardiovascular: Regular Rate, Normal S1, Normal S2, No Murmurs Lungs: Clear to Auscultation, Normal Air Movement Abdomen: Normal Bowel Sounds, Soft, No Tenderness Neurological: Normal Speech Extremities: No Clubbing, No Cyanosis, No Edema, Normal Pulses, No Tenderness/ Swelling Vascular: Normal Pulses, Pulses Symmetrical Current Medications: Current Medications Sig/Wilton Start time Last Medication Dose Route Stop Time Status Admin Acetaminophen 650 MG .STK-MED ONE 01/16 2016 DC PO 01/15 2017 Acetaminophen 650 MG Q6P PRN 01/12 0400 AC 01/15 PO 2021 Amlodipine Besylate 5 MG DAILY 01/12 09 AC 01/16 PO 0946 Atorvastatin Calcium 10 MG DAILY 01/12 900 AC 01/16 PO 0946 Enoxaparin Sodium 40 MG DAILY 01/12 900 AC 01/16 SC 0946 Folic Acid 1 MG DAILY 01/12 09 AC 01/16 PO 0946 Gabapentin 600 MG Q8 01/16 1400 AC PO Gabapentin 300 MG ONCE ONE 01/16 09 DC 01/16 PO 01/16 0901 0946 Gabapentin 300 MG Q8 01/11 1719 DC 01/16 PO 0549 Lorazepam 0.5 MG BID 01/16 2100 AC PO 01/23 205 Lorazepam 0.5 MG Q6 01/15 1800 DC 01/16 PO 01/21 1159 0549 Lorazepam 1 MG Q6 01/14 1200 DC 01/15 PO 1142 Lorazepam 0 Q1P PRN 01/12 0415 AC 01/12 IV 0639 Losartan Potassium 25 MG DAILY 01/12 1220 AC 01/16 PO 0946 Magnesium Oxide 400 MG BID 01/12 09 AC 01/16 PO 0946 Multivitamins 1 TAB DAILY 01/12 09 AC 01/16 PO 0946 Patient Medication 1 ED ONE ONE 01/15 194 DC Teaching ED 01/15 1946 Thiamine HCl 100 MG DAILY 01/12 900 AC 01/16 PO 0946 Orders CIWA Score (last 24 hrs): 0, max 2 overnight Assessment/Plan Assessment: Mr. Dominguez is a 42 y/o gentleman with past medical history is significant for alcohol abuse, hypertension, hyperlipidemia, pancreatitis, anxiety, depression and ADHD presents for alcohol detox. Vitals on admission were Temp 98.4, HR 101, RR 18, BP 168/117 and O2 Sats 98 % on Room Air AST 243 H, ALT 129 H, Alkaline Phosphatase 155 H, total bilirubin 2.1 and direct bilirubin 0.4, Troponin I < 0.01, Magnesium 1.5. utoxpositive for Cannabis and Cocaine Problem List; #. ALcohol Detox #. Transaminitis 2/2 to alcohol abuse #. Hypomagnesemia 2/2 to alcohol abuse #. Cannabis and cocaine abuse; #. Hx of HTN, Anxiety and Depression Plan -Patient is admitted to [facility] medical floors for evaluation and treatment -CIWA scoring with when necessary Ativan with standing dose of Ativan 1 every 6 that will be tapered today to 25 mg every 6. Today patient is scoring CIWA of 0. - Multivitamin, Folate and Thiamine - Zofran as needed for nausea - Recieved Gabapentin 300mg x 1 in ER and as per psych, who he saw for expressed depression and anxiety, we will continue the gabapentin 300 mg 3 times a day. Psychiatry also requested thyroid tests which were normal as well as hepatitis panel and HIV which were both negative. RPR/VDRL is also negative. -Patient is requesting to speak with psychiatry again just for optimal anxiety control prior to being discharged to [facility]. Of note they do have their own psychiatrist there so he will be able to have his anxiety and depression managed there. The patient has been on SSRIs before, namely Lexapro. He is amenable to starting another one as he stated that Lexapro did not help him very much. - Clonidine x 1 given in the ER for tachycardia and HTN likely 2/2 to alcohol withdrawl, can repeat as needed but we have increased his amlodipine 2.5 mg to 5 mg and added losartan 25 mg. -Continue on slow-mag 400mg BID, last magnesium level was within normal limits -Continue Simvastatin. -Patient was found to have elevated temperature last week to 101.7. Chest x-ray was done which was normal, vitals at the time were normal. Urine and blood cultures were normal. Today patient is afebrile. WBC is normal on his last draw. -Patient had elevated LFTs on admission that increased the following day. Yesterday his LFTs were all decreasing the repeat lab work was not done for today. Total protein and albumin levels are normal. The patient has had no right upper quadrant pain on palpation as per exam, has no icterus or jaundice. DVT Prophylaxis; ALPS and S/C Lovenox Patient is Full Code Problem List: 1. Alcohol withdrawal 2. Generalized anxiety disorder Pain Ratin Pain Location: na Pain Goal: Remain pain free Pain Plan: na Tomorrow's Labs & Rationales: na
--- NOTE | 2018-01-16 08:54 | PN- Psychiatry ---
Assessment/Plan Impression: Patient remains anxious. Reports havingt a "panic attack" where he becamoe overwhelmed with worry about seeing his children before going to [facility], what [facility] teodoro be like etc. Lasted about 2 hrs. Has found Gabapentin helpful for anxiety. H/O adverse effects from SSRIs. Detox uneventful. Suggestion: - Increase gabapentin to 600 mg po tid - Consider mirtazapine - defer to [facility] - Ct detox per medical team - Planned discharge directly to [facility] tomorrow Psychiatry will sign off. Thank you for consulting us on this patient. Please do not hesitate to contact us if we can be of any further assistance. Problem List: 1. Alcohol withdrawal 2. Generalized anxiety disorder Subjective Subjective: Reports high level of anxiety at baseline with intermittent exacerbation. Review of Systems: Alert and oriented x 3. Gait steady. Eye contact good. Speech normal in rate, rhythm, volume and tone. Mood anxious with congruent affect. Not suicidal or homicidal. Thought process normal in tempo, stream and form with no delusions or obsessions. Attention and concentration good. No perceptual abnormality. Impulse control good. Intelligence level average, fund of knowledge average, use of language appropriate. Recent and remote memory intact. Insight good, judgement unimpaired. Review of Systems Constitutional: Reports: no symptoms. EENTM: Reports: no symptoms. All Other Systems: Reviewed and Negative Objective Last 24 Hrs of Vital Signs/I&O Vital Signs Date Time Temp Pulse Resp B/P B/P Pulse O2 O2 Flow FiO2 Mean Ox Delivery Rate 01/16 0946 61 154/100 01/16 0946 61 154/100 01/16 0702 97.7 56 18 116/72 99 Room Air 01/16 0400 98.3 51 18 126/80 01/16 0202 98.3 51 18 126/80 98 Room Air 01/16 0200 98.3 51 18 126/80 01/16 0000 99.5 62 22 158/102 01/15 2204 99.5 62 22 158/102 98 Room Air 01/15 1443 98.8 71 20 128/82 98 Room Air 01/15 1400 98.8 71 20 128/82 Intake & Output 01/16 1600 01/16 0800 01/16 0000 Intake Total 360 2000 Output Total Balance 360 2000 Intake, Oral 360 1999 Results Last 24 Hrs of Labs/Mics: Lab ALT 120 U/L H 01/13/18 0800 AST 171 U/L H 01/13/18 0800 Albumin 4.6 g/dL 01/13/18 0800 Alkaline Phosphatase 97 U/L 01/13/18 0800 Anion Gap 13 01/13/18 0800 BUN 10 mg/dL 01/13/18 0800 BUN/Creatinine Ratio 14.3 % 01/13/18 0800 Carbon Dioxide 29 mmol/L 01/13/18 0800 Chloride 100 mmol/L 01/13/18 0800 Creatinine 0.7 mg/dL 01/13/18 0800 Direct Bilirubin 0.5 mg/dL H 01/13/18 0800 Estimated GFR > 60 ml/min 01/13/18 0800 Magnesium 1.8 mg/dL 01/13/18 0800 Potassium 3.8 mmol/L 01/13/18 0800 Sodium 142 mmol/L 01/13/18 0800 TSH &T3 &Free T4 Intrp 3.160 uIU/mL 01/13/18 0800 Total Bilirubin 2.1 mg/dL H 01/13/18 0800 Total Protein 7.7 g/dL 01/13/18 0800 Hct 39.7 % L 01/13/18 0800 Hgb 13.6 G/DL L 01/13/18 0800 MCH 34.3 PG H 01/13/18 0800 MCHC 34.4 G/DL 01/13/18 0800 MCV 99.9 FL H 01/13/18 0800 Plt Count 244 /CUMM 01/13/18 0800 RBC 3.97 /CUMM L 01/13/18 0800 RDW 15.2 % H 01/13/18 0800 Serum Alcohol 223.0 MG/DL 01/11/18 1810 Urine Cannabis Screen 78.50 NG/ML H 01/11/18 180 Urine Cocaine Screen > 1000 NG/ML H 01/11/18 180
--- NOTE | 2018-01-16 10:40 | PN- Att Addend ---
Attending Addendum Attending Brief Note Patient seen and examined, overall feeling much better. He wants to speak with a social worker delinquency prevention. He was seen by psychiatrist and his gabapentin dose has been increased. Vital Signs Date Time Temp Pulse Resp B/P B/P Pulse O2 O2 Flow FiO2 Mean Ox Delivery Rate 01/16 0946 61 154/100 01/16 0946 61 154/100 01/16 0702 97.7 56 18 116/72 99 Room Air 01/16 0400 98.3 51 18 126/80 01/16 0202 98.3 51 18 126/80 98 Room Air 01/16 0200 98.3 51 18 126/80 01/16 0000 99.5 62 22 158/102 01/15 2204 99.5 62 22 158/102 98 Room Air 01/15 1443 98.8 71 20 128/82 98 Room Air 01/15 1400 98.8 71 20 128/82 On exam; aox3, nad. cv; s1, s2, rrr resp; clear abd; soft, nt, bs+ ext; no edema No labs. A/P: 42-year-old male with past medical history significant for hypertension, hyperlipidemia, noncompliance of medications, alcohol use who is admitted with acute alcohol intoxication. Patient overall improving. We will continue to taper his Ativan. Will taper down to 0.5 mg BID scheduled and continue the as needed dosing. Continue calcium channel christian as well as losartan for htn. Gabapentin dose is increased per psych. Patient was encouraged to ambulate. Continue the rest of the management and patient on Lovenox for DVT prophylaxis. Likley discharge to [facility] tomorrow.
[2018-01-17 04:00] VITALS: BP 130/80
[2018-01-17 06:00] VITALS: BP 130/80
[2018-01-17 06:50] VITALS: BP 140/100
--- NOTE | 2018-01-17 07:39 | PN- Housestaff ---
Subjective Follow-up For: Alcohol detox Subjective: Patient seen and examined. He states he feels good. He denies any headaches, tremors, nausea, vomiting, anxiety. He attributes the decrease in anxiety to the gabapentin increase yesterday. Overnight his max CIWA score was 5 for tremors, anxiety, headache. This morning his CIWA score is 0. Review of Systems Constitutional: Reports: no symptoms. Cardiovascular: Reports: no symptoms. Respiratory: Reports: no symptoms. Gastrointestinal: Reports: no symptoms. Musculoskeletal: Reports: no symptoms. Neurological/Psychological: Reports: no symptoms. Objective Last 24 Hrs of Vital Signs/I&O Vital Signs Date Time Temp Pulse Resp B/P B/P Pulse O2 O2 Flow FiO2 Mean Ox Delivery Rate 01/17 0834 68 140/100 01/17 0834 68 140/100 01/17 0650 97.7 58 20 140/100 99 Room Air 01/17 0600 98.9 63 18 130/80 01/17 0400 98.9 63 18 130/80 01/16 2235 98.8 63 19 130/80 99 Room Air 01/16 2200 98.4 65 18 138/87 01/16 2000 98.4 65 18 138/87 01/16 1800 98.4 65 20 138/87 Intake & Output 01/17 1600 01/17 0800 01/17 0000 Intake Total 240 120 Output Total Balance 240 120 Intake, Oral 240 120 Physical Exam General Appearance: Alert, Oriented X3, Cooperative, No Acute Distress Cardiovascular: Regular Rate, Normal S1, Normal S2, No Murmurs Lungs: Clear to Auscultation, Normal Air Movement Abdomen: Normal Bowel Sounds Neurological: Normal Speech Assessment/Plan Assessment: Mr. Dominguez is a 42 y/o gentleman with past medical history is significant for alcohol abuse, hypertension, hyperlipidemia, pancreatitis, anxiety, depression and ADHD presents for alcohol detox. Vitals on admission were Temp 98.4, HR 101, RR 18, BP 168/117 and O2 Sats 98 % on Room Air AST 243 H, ALT 129 H, Alkaline Phosphatase 155 H, total bilirubin 2.1 and direct bilirubin 0.4, Troponin I < 0.01, Magnesium 1.5. utoxpositive for Cannabis and Cocaine Problem List; #. ALcohol Detox #. Transaminitis 2/2 to alcohol abuse #. Hypomagnesemia 2/2 to alcohol abuse #. Cannabis and cocaine abuse; #. Hx of HTN, Anxiety and Depression Plan -Patient is admitted to [facility] medical floors for evaluation and treatment -CIWA scoring with when necessary Ativan with standing dose of Ativan 1 every 6 that will be tapered today to 25 mg every 6. Today patient is scoring CIWA of 0. - Multivitamin, Folate and Thiamine - Zofran as needed for nausea - Recieved Gabapentin 300mg x 1 in ER and as per psych, who he saw for expressed depression and anxiety, we we increased the gabapentin from 300 mg 3 times a day to 603 times a day to good effect. Psychiatry also requested thyroid tests which were normal as well as hepatitis panel and HIV which were both negative. RPR/VDRL is also negative. - Clonidine x 1 given in the ER for tachycardia and HTN likely 2/2 to alcohol withdrawl, can repeat as needed but we have increased his amlodipine 2.5 mg to 5 mg and added losartan 25 mg. -Continue on slow-mag 400mg BID, last magnesium level was within normal limits -Continue Simvastatin. -Patient was found to have elevated temperature last week to 101.7. Chest x-ray was done which was normal, vitals at the time were normal. Urine and blood cultures were normal. Today patient is afebrile. WBC is normal on his last draw. -Patient had elevated LFTs on admission that increased the following day. On subsequent draws, LFTs were all decreasing. Total protein and albumin levels are normal. The patient has had no right upper quadrant pain on palpation as per exam, has no icterus or jaundice. -Patient will be discharged to [facility] today for alcohol rehabilitation. His medications have been printed. DVT Prophylaxis; ALPS and S/C Lovenox Patient is Full Code Problem List: 1. Generalized anxiety disorder 2. Alcohol withdrawal Pain Ratin Pain Location: na Pain Goal: Remain pain free Pain Plan: na Tomorrow's Labs & Rationales: na
[2018-01-17 08:34] VITALS: BP 140/100
[2018-01-17] MEDS ORDERED: ONE DAILY MULT1 EAC2 PO (09:01)
[2018-01-17] MEDS ORDERED: GABAPENTIN300 M2 PO (09:01)
[2018-01-17] MEDS ORDERED: FOLIC ACID1 M1 PO (09:01)
[2018-01-17] MEDS ORDERED: VITAMIN B-1100 MG PO (09:01)
--- NOTE | 2018-01-17 11:54 | PN- Att Addend ---
Attending Addendum Attending Brief Note Patient seen and examined, overall doing much better. Claims that increased dose of gabapentin has helped a lot. She was scores are running low. Patient received last dose of his Ativan this morning. He is otherwise medically stable for discharge to [facility] today. He'll be continued on his losartan and amlodipine for blood pressure control. He will be continued on high-dose of gabapentin as well. Patient will be discharged to alcohol rehabilitation [facility] today.
== END 2018-01-17 11:40 | DRG 774 ==
LOC: ERH 16:23 → ERHI 01-12 03:08 → 2NA 01-12 03:08 → ENRESERV 01-12 05:55 → 2NA 01-12 06:27 → ENPENDDIS 01-17 09:17 → 2NA 01-17 11:40
PROVIDERS: Internal Medicine; Physician Assistant; Student in an Organized Health Care Education/Training Program
DX: F10.239 Alcohol dependence with withdrawal, unspecified (principal); F41.9 Anxiety disorder, unspecified; Z72.0 Tobacco use; I10 Essential (primary) hypertension; F14.10 Cocaine abuse, uncomplicated; F12.10 Cannabis abuse, uncomplicated; E83.42 Hypomagnesemia; F10.229 Alcohol dependence with intoxication, unspecified; Y90.7 Blood alcohol level of 200-239 mg/100 ml; F41.0 Panic disorder [episodic paroxysmal anxiety]; Z91.14 Patient's other noncompliance with medication regimen; R74.0 Nonspecific elevation of levels of transaminase and lactic acid dehydrogenase [LDH]; E78.5 Hyperlipidemia, unspecified; F32.9 Major depressive disorder, single episode, unspecified; F90.9 Attention-deficit hyperactivity disorder, unspecified type; R50.9 Fever, unspecified
CPT/HCPCS: 2NAP; 36415; 36592; 71046; 80307; 82436; 87040; 87086; 87389; 93005; 93010; 96374; G0480; J1650; J3490